=== PATIENT | female | born 1990 | race Caucasian/White ===

== ENCOUNTER → 2020-06-25 | Outpatient (CLI) | payer MEDICAID ==
[~2020-06-25] MED LIST: ACHYD1T PO; DCS100C PO; FRS325T PO; IBP600T1 PO; PREN-102 PO
== END ==
LOC: LAB 14:10
PROVIDERS: ATTEND Student in an Organized Health Care Education/Training Program
DX: Z34.82 Encounter for supervision of other normal pregnancy, second trimester (principal)
CPT/HCPCS: 36415; 82950; 82962